=== PATIENT | female | born 1955 | race Caucasian/White ===

== ENCOUNTER 2017-08-22 07:03 | Day surgery (SDC) | payer OTHER ==
[~2017-08-22] VITALS: Ht 152.4 cm; Wt 79.8 kg
[2017-08-22] MEDS ORDERED: VITD1000 PO (08:05)
[2017-08-22] MEDS ORDERED: LOSA25TA22 PO (08:05)
[2017-08-22] MEDS ORDERED: METF500T PO (08:05)
[2017-08-22] MEDS ORDERED: URSO300C14 PO (08:05)
[2017-08-22] MEDS ORDERED: ONDANSETRON 4 MG/2 ML VIAL ONE (09:22)
[2017-08-22] MEDS ORDERED: ROCURONIUM 50 MG/5 ML VIAL IV ONE (09:22)
[2017-08-22] MEDS ORDERED: MEPERIDINE 50 MG/ML SYR ONE ×2 (09:22→09:38)
[2017-08-22] MEDS ORDERED: SUCCINYLCHOLINE CHLORIDE 200 MG/10 ML VIAL IVP ONE (09:22)
[2017-08-22] MEDS ORDERED: DEXAMETHASONE 4 MG/ML VIAL ONE (09:22)
[2017-08-22] MEDS ORDERED: ceFAZolin 1,000 MG VIAL ONE (09:22)
[2017-08-22] MEDS ORDERED: PROPOFOL 200 MG/20 ML VIAL IV ONE (09:22)
[2017-08-22] MEDS ORDERED: SEVOFLURANE 250 ML BTL INH ONE (09:22)
[2017-08-22] MEDS ORDERED: BUPIVACAINE-MPF 0.25% 30 ML VIAL INJ ONE (09:32)
[2017-08-22] MEDS ORDERED: MIDAZOLAM 2 MG/2 ML VIAL ONE (09:37)
[2017-08-22] MEDS ORDERED: fentaNYL 0.05 MG/ML VIAL ONE (09:38)
[2017-08-22] MEDS ORDERED: ONDANSETRON 4 MG/2 ML VIAL IVP PRN (10:00)
[2017-08-22] MEDS ORDERED: MEPERIDINE 25 MG/ML SYR IVP PRN (10:00)
[2017-08-22] MEDS ORDERED: diphenhydrAMINE 50 MG/ML VIAL IVP PRN (10:00)
[2017-08-22] MEDS ORDERED: NACL 0.9% 1,000 ML IV SCH (10:00)
[2017-08-22] MEDS ORDERED: HYDROmorphone 1 MG/ML AMP IVP PRN ×2 (10:00→10:30)
[2017-08-22] MEDS ORDERED: MORPHINE SULFATE 2 MG/ML SYR IVP PRN (10:30)
[2017-08-22] MEDS ORDERED: HYDROcodone/APAP 5/325 MG 1 TAB TAB PO PRN (10:30)
[2017-08-22] MEDS ORDERED: MORPHINE SULFATE 4 MG/ML SYR IV PRN (10:30)
[2017-08-22] MEDS ORDERED: ONDANSETRON 4 MG/2 ML VIAL IV PRN (10:30)
[2017-08-22] MEDS: HYDROmorphone PFS 2 MG/ML SYR ONE ×2 (10:57→11:07)
[2017-08-22] MEDS ORDERED: NACL 0.9% 500 ML IV SCH (12:20)
== END 2017-08-22 14:40 | disposition home or self-care (01) ==
LOC: MDS 07:03 → MMU 07:07 → MDS 14:40
PROVIDERS: ATTEND Surgery
DX: K80.10 Calculus of gallbladder with chronic cholecystitis without obstruction (principal); I10 Essential (primary) hypertension; E11.9 Type 2 diabetes mellitus without complications; Z98.890 Other specified postprocedural states; Z90.710 Acquired absence of both cervix and uterus
CPT/HCPCS: 36415; 47562; 71010; 82374; 82948; 86886; 86900; 86901; 93005; J0330; J0690; J1100; J1170; J2175; J2250; J2405; J2704; J3010; J3490; J7030; J7060; Q0092

== ENCOUNTER 2019-07-23 08:06 | Day surgery (SDC) | payer OTHER ==
[~2019-07-23] VITALS: Ht 149.9 cm; Wt 89.4 kg
[~2019-07-23 08:06] MED LIST: LOSA25TA43 PO; METF500T PO; URSO300C14 PO; VITD1000 PO
[2019-07-23] MEDS ORDERED: fentaNYL 0.05 MG/ML VIAL ONE (11:24)
[2019-07-23] MEDS ORDERED: LIDOCAINE 2% 100 MG/5 ML UJET TP ONE (11:24)
[2019-07-23] MEDS ORDERED: fentaNYL 0.05 MG/ML VIAL IVP ONE (12:15)
== END 2019-07-23 12:35 | disposition home or self-care (01) ==
LOC: MMU 08:06 → MOR 08:06
PROVIDERS: ATTEND Internal Medicine Gastroenterology
DX: Z12.11 Encounter for screening for malignant neoplasm of colon (principal); K57.30 Diverticulosis of large intestine without perforation or abscess without bleeding; K64.8 Other hemorrhoids; I10 Essential (primary) hypertension; E11.9 Type 2 diabetes mellitus without complications; E66.9 Obesity, unspecified; Z79.899 Other long term (current) drug therapy; Z68.39 Body mass index [BMI] 39.0-39.9, adult
CPT/HCPCS: 45378; J3010